=== PATIENT | female | born 1945 ===

== ENCOUNTER 2020-12-15 06:51 | Emergency (ER) | payer BC ==
[~2020-12-15] VITALS: Ht 162.6 cm; Wt 83.9 kg
[~2020-12-15 06:51] MED LIST: DULO60 PO; LANS30EC PO; MESA400ER PO; VENL37.5 PO
[2020-12-15] MEDS ORDERED: DULOXETINE HCL60 M1 PO (07:32)
[2020-12-15] MEDS ORDERED: ATORVASTATIN CA20 MG PO (07:32)
[2020-12-15] MEDS ORDERED: OMEP20ER PO (07:33)
[2020-12-15] MEDS ORDERED: LOSA50 PO (07:33)
[2020-12-15 07:47] LABS: BASOPHILS ABSOLUTE AUTO 0.01 K/mm3 (0.00-0.23); BASOPHILS PERCENT AUTO 0 % (0-2); EOSINOPHILS PERCENT AUTO 0 % (0-6); Hematocrit 40.4 % (33.0-51.0); IMMATURE GRAN ABSOLUTE AUTO 0.01 K/mm3 (0.00-0.10); IMMATURE GRAN PERCENT AUTO 0 % (0-1); LYMPHOCYTES ABSOLUTE AUTO 0.47 K/mm3 (0.84-5.20); LYMPHOCYTES PERCENT AUTO 12 % (21-46); MONOCYTES PERCENT AUTO 5 % (4-13); Mean Corpuscular HGB 29.9 pg (26.0-34.0); Mean Corpuscular HGB Conc 34.7 g/dL (31.5-36.5); Mean Corpuscular Volume 86 fL (80-100); Mean Platelet Volume 10.3 fL (9.1-12.4); NEUTROPHILS ABSOLUTE AUTO 3.21 K/mm3 (1.96-9.15); NEUTROPHILS PERCENT AUTO 82 % (41-73); Platelet Count 142 K/mm3 (150-400); RDW Coefficient Variation 12.9 % (11.7-14.2); RDW Standard Deviation 40.4 fL (35.1-46.3); Red Blood Cell Count 4.69 M/mm3 (3.80-5.20)
[2020-12-15 08:02] LABS: Anion Gap 8 mmol/L (6-16); Blood Urea Nitrogen 18 mg/dL (8-24); Bun/Creatinine Ratio 22.2 (12.0-20.0); CO2, Blood 23 mmol/L (21-32); Calcium, Blood 8.5 mg/dL (8.5-10.1); Chloride, Blood 99 mmol/L (98-108); Creatinine, Blood 0.81 mg/dL (0.40-1.00); Glomerular Filtration Rate >60 (60-); Glucose, Blood 115 mg/dL (70-99); Sodium, Blood 130 mmol/L (136-145)
[2020-12-15] MEDS ORDERED: DEXA6 PO (10:09)
[2020-12-15] MEDS ORDERED: ONDA4ODT MM (10:09)
== END 2020-12-15 13:23 | disposition home or self-care (01) ==
LOC: ER 06:51
PROVIDERS: Emergency Medicine
DX: U07.1 COVID-19 (principal); J12.82 Pneumonia due to coronavirus disease 2019; R09.02 Hypoxemia; Z79.899 Other long term (current) drug therapy; K21.9 Gastro-esophageal reflux disease without esophagitis; G43.909 Migraine, unspecified, not intractable, without status migrainosus; M19.90 Unspecified osteoarthritis, unspecified site
CPT/HCPCS: 36415; 71045; 80048; 85025; 96374; 96375; 99284-25; J1100; J2405; J7030; Q0243